=== PATIENT | female | born 1985 | race Caucasian/White ===

== ENCOUNTER → 2023-02-06 14:37 | Outpatient (BNVA) | payer OTHER, SELFPAY | PROVIDERS: PCP Physician Assistant Medical; Visit Provider Internal Medicine | DX: E07.9 Disorder of thyroid, unspecified (principal); M25.50 Pain in unspecified joint; M45.0 Ankylosing spondylitis of multiple sites in spine | CPT/HCPCS: 36415; 72040; 72202; 73120; 80053; 81001; 82310; 82550; 82728; 82784; 83516; 83520; 83540; 83735; 83970; 84100; 84182; 84550; 85025; 85651; 86003; 86008; 86140; 86160; 86200; 86235; 86704; 86803; 86812; 87340 ==

== ENCOUNTER → 2023-08-03 11:36 | Outpatient (BNVA) | payer OTHER, SELFPAY | PROVIDERS: PCP Physician Assistant Medical; Visit Provider Internal Medicine | DX: M25.50 Pain in unspecified joint (principal); M79.673 Pain in unspecified foot | CPT/HCPCS: 73620 ==

== ENCOUNTER → 2023-08-14 10:08 | Outpatient (BNVA) | payer OTHER, SELFPAY | PROVIDERS: PCP Physician Assistant Medical; Visit Provider Internal Medicine | DX: E07.9 Disorder of thyroid, unspecified (principal); M25.50 Pain in unspecified joint; M79.673 Pain in unspecified foot | CPT/HCPCS: 80053; 80061; 82533; 82607; 82728; 82746; 83540; 84425; 84439; 84443; 84480; 84481; 85025; 85651; 86140; 86376; 86800 ==